=== PATIENT | female | born 1975 | race Caucasian/White ===

== ENCOUNTER 2017-01-05 22:48 | Emergency (ER) | payer OTHER, MEDICARE ==
[~2017-01-05 22:48] MED LIST: ALBUTEROL0.09 MG/A1 INH; ALBUTEROL3 ML INH; ASPIR 8181 MG PO; FLU VACCINE 0.0.5 ML IM; IBUPROFEN600 M1 PO; IRON SUPPLEMEN325 MG PO; MOBIC 15MG15 MG PO; NAPROXEN375 MG; NEXIUM 40MG40 MG PO; OMEPRAZOLE40 MG PO; PERCOCET 325 MG1 TA2 PO; PERCOCET 5-3251 EACH PO; PNEUMOVAX 0.5M0.5 ML IM; PREDNISONE 20MG20 MG PO; PREDNISONE10 MG PO; PREDNISONE20 M1 PO; PROAIR HFA0.09 MG/Ac PO; SYMBICORT 160/41 PUF INH; SYMBICORT 80/4.1 PUF INH; TESSALON PERLE100 M1 PO; TRAMADOL50 MG PO; TRAZODONE100 MG; TYLENOL TAB 32325 MG PO; VITAMIN D50000 IU PO; ZITHROMAX Z-PA250 MG PO; ZITHROMAX500 M2 PO
--- NOTE | 2017-01-05 22:54 | ED GI/GU/ABDOMINAL COMPLAINT ---
History of Present Illness General Chief Complaint: Female Urogenital Problems Stated Complaint: SUPRAPUBIC/GENITAL PAIN Source: patient Exam Limitations: no limitations Vital Signs & Intake/Output Vital Signs & Intake/Output Vital Signs Date Time Temp Pulse Resp B/P Pulse O2 O2 Flow FiO2 Ox Delivery Rate 01/05 2250 97.7 83 18 163/83 98 Allergies Coded Allergies: Penicillins (HIVES 02/29/16) amoxicillin (HIVES 02/29/16) cheese (HIVES 02/29/16) Uncoded Allergies: PET DANDER/HAIR (CONGESTION 07/28/14) Reconcile Medications Albuterol Sulfate (Albuterol Sulfate Hfa) 0.09 MG/Actuation FRANCES 2 PUFF INH PRN SHORTNESS OF BREATH (Reported) 90 MCG PER PUFF Budesonide/Formoterol Fumara (Symbicort 160-4.5 Mcg Inhaler) 160 MCG/4.5 MCG PUF 2 PUF INH BID ASTHMA (Reported) Ibuprofen 800 MG TABLET 1 TAB PO TID PRN pain Oxycodone HCl/Acetaminophen (Percocet 5-325 MG Tablet) 1 EACH TABLET 1 TAB PO Q6H PRN PAIN Triage Nurses Notes Reviewed? yes ? n Is pt currently ? No Duration: day(s): Timing: recent history Location: lower abdomen Radiation: no radiation Modifying Factors: Worsens With: palpation. Associated Symptoms: abdominal pain HPI: 41 yo woman, with morbid obestiy presents with lower abdominal pain for the past 1-2 hours which began after she had a bowel movement. She notes no nausea, vomiting, diarrhea, constiaption, dysuria Past History Medical History Any Pertinent Medical History? see below for history Neurological: migraine EENT: NONE Cardiovascular: NONE Respiratory: asthma Gastrointestinal: NONE Hepatic: NONE Renal: KIDNEY STONES Musculoskeletal: osteoarthritis Psychiatric: insomnia Endocrine: NONE Blood Disorders: NONE Cancer(s): cervical cancer [employer]/Reproductive: NONE History of MRSA: No History of VRE: No History of CDIFF: No Surgical History Surgical History: cholecystectomy, cervix removal Psychosocial History Who do you live with Friend Services at Home None What is your primary language [place]ian Family History Family History, If Any: MOTHER Relation not specified for: FH: lung cancer Hx Contributory? No Review of Systems Review of Systems Constitutional: Reports: no symptoms. EENTM: Reports: no symptoms. Respiratory: Reports: no symptoms. Cardiovascular: Reports: no symptoms. GI: Reports: no symptoms. Genitourinary: Reports: no symptoms. Musculoskeletal: Reports: no symptoms. Skin: Reports: no symptoms. Neurological/Psychological: Reports: no symptoms. Hematologic/Endocrine: Reports: no symptoms. Immunologic/Allergic: Reports: no symptoms. All Other Systems: Reviewed and Negative Physical Exam Physical Exam General Appearance: well developed/nourished, mild distress Head: atraumatic, normal appearance Eyes: Bilateral: normal appearance. Ears, Nose, Throat, Mouth: hearing grossly normal Neck: normal inspection, supple, full range of motion, normal alignment Respiratory: normal breath sounds, chest non-tender, no respiratory distress, quiet respiration, lungs clear Cardiovascular: regular rate/rhythm Gastrointestinal: normal bowel sounds, soft, no organomegaly, diffuse tenderness in lower abdomen, suprapubic region. no rebound. no guarding. Extremities: normal range of motion Neurologic/Psych: no motor/sensory deficits, awake, alert, oriented x 3 Skin: intact, normal color, warm/dry Core Measures ACS in differential dx? No Severe Sepsis Present: No Septic Shock Present: No Progress Differential Diagnosis: UTI/pyelo, appy, muscle strain vs other. Plan of Care: Orders Procedure Date/time Status Add-on Test (ER Only) 01/07 32 Active LIPASE 01/07 32 Complete HEPATIC FUNCTION PANEL 01/07 32 Complete CBC WITHOUT DIFFERENTIAL 01/07 32 Complete BASIC METABOLIC PANEL 01/07 32 Complete AMYLASE 01/07 32 Complete Add-on Test (ER Only) 01/05 2328 Active CULTURE,URINE 01/05 2319 Active URINE 01/05 2318 Complete URINALYSIS 01/05 2318 Complete Laboratory Tests 01/06/17 0156: Anion Gap 6, Estimated GFR > 60, BUN/Creatinine Ratio 21.7, Glucose 105 H, Calcium 10.1, Total Bilirubin 1.0, Direct Bilirubin 0.6 H, AST 50 H, ALT 70 H , Alkaline Phosphatase 161 H, Total Protein 6.8, Albumin 3.8, Amylase < 30 L, Lipase 58 01/06/17 0106: CBC w Diff NO MAN DIFF REQ, RBC 5.52 H, MCV 78.5 L, MCH 25.7 L, RDW 16.7 H, MPV 8.1, Gran % 60.5, Lymphocytes % 29.6, Monocytes % 7.1, Eosinophils % 2.3, Basophils % 0.5, Absolute Granulocytes 4.1, Absolute Lymphocytes 2.0, Absolute Monocytes 0.5, Absolute Eosinophils 0.2, Absolute Basophils 0, PUBS MCHC 32.7 L 01/05/178: Urine Color YEL, Urine Clarity CLEAR, Urine pH 6.0, Ur Specific [place] 1.020, Urine Protein NEG, Urine Ketones NEG, Urine Nitrite NEG, Urine Bilirubin NEG, Urine Urobilinogen 0.2, Ur Leukocyte Esterase NEG, Ur Microscopic EXAM NOT REQUIRED, Urine Hemoglobin NEG, Urine Glucose NEG, Urine Test NEGATIVE Microbiology 01/05 2318 URINE ROUT: Urine Culture - RECD Diagnostic Imaging: Viewed by Me: CT Scan. Discussed w/RAD: CT Scan. Radiology Impression: abd/pelvic ct... no acute change.. full report below. Initial ED EKG: none Comments: PATIENT: MARY JONES PRESENT AGE: 41 PATIENT ACCOUNT NO: [id number] : 77 LOCATION: [facility] ORDERING PHYSICIAN: JASPAL GRAVES MD SERVICE DATE: 01/06/17 EXAM TYPE: CAT - CT ABD & PELVIS W/O IV CONTRAS EXAMINATION: CT ABDOMEN AND PELVIS WITHOUT CONTRAST CLINICAL INFORMATION: Lower abdominal pain. COMPARISON: CT scan abdomen and pelvis 07/29/2014 TECHNIQUE: Multidetector volumetric imaging was performed from the superior aspect of the liver through the pubic symphysis. Sagittal and coronal reformatted images were obtained on the technologist's workstation. DLP: 1479.72 mGy-cm FINDINGS: LUNG BASES: Linear scarring/subsegmental atelectasis at lung bases. LIVER, GALLBLADDER, AND BILIARY TREE: The liver is normal in size, shape, and attenuation. No focal hepatic lesion or biliary ductal dilatation is present. The right lobe liver measures 25.6 cm superior inferior, hepatomegaly. Status post cholecystectomy. No bile duct dilatation. CBD measures 5 mm. PANCREAS: Unremarkable. SPLEEN: Spleen measures 13 cm superior inferior. No focal splenic lesion. ADRENAL GLANDS: Unremarkable. KIDNEYS AND URETERS: 1 mm nonobstructive stone in the midpole the right kidney. No stone in left kidney. There is no ureteral calculus. No hydronephrosis. BLADDER: Unremarkable. GASTROINTESTINAL TRACT: No acute change of the bowel. No bowel obstruction. No bowel wall thickening or edema. Moderate volume of stool in the right colon. The appendix is normal. ABDOMINAL WALL: There is a ventral wall hernia. This is comprised of 2 adjacent hernias of the ventral wall. The ventral wall hernia contains fluid but no bowel loop. There is induration in the subcutaneous tissue around the fluid collection. The size of the fluid collection at the ventral wall hernia has diminished since the exam of 07/29/2014. This measures about 10 cm superior inferior on the prior CAT scan of 07/29/2014 and now measures about 6 cm superior inferior. There is no herniation of bowel loops. LYMPH NODES: No bulky lymphadenopathy. VASCULAR: Scattered vascular wall calcifications of the distal aorta without aneurysm. PELVIC VISCERA: Uterus is anteverted. No adnexal abnormality. No fluid in the cul-de-sac. OSSEOUS STRUCTURES: Unremarkable. IMPRESSION: 1. No acute change CT scan abdomen and pelvis. 2. Persistent ventral wall hernia containing fluid . 3. Mild hepatosplenomegaly. 4. Status post cholecystectomy. DICTATED BY: LISHA SOLIMAN MD DATE/TIME DICTATED:01/06/17152 BLOW DOWN OPERATOR:CARLOS DATE/TIME TRANSCRIBED:01/06/17152 CONFIDENTIAL, DO NOT COPY WITHOUT APPROPRIATE AUTHORIZATION. <Electronically signed in Other Vendor System> SIGNED BY: LISHA SOLIMAN MD 01/06/17 0209 Departure Departure Disposition: HOME OR SELF CARE Condition: Stable Clinical Impression Primary Impression: Abdominal pain Referrals: DAYANNA WILSON APRN (PCP/Family) Departure Forms: Customer Survey General Discharge Information Prescriptions: Current Visit Scripts Ibuprofen 1 TAB PO TID PRN pain #[address] scan benign. labs benign... pt feeling more comfortable in ED... safe for discharge.
[2017-01-06 01:23] LABS: ABSOLUTE BASOPHIL COUNT 0 /CUMM (0.0-0.2); ABSOLUTE EOSINOPHIL COUNT 0.2 /CUMM (0.0-0.7); ABSOLUTE GRANULOCYTE CT 4.1 /CUMM (1.4-6.5); ABSOLUTE MONOCYTE COUNT 0.5 /CUMM (0.10-0.60); BASOPHIL % 0.5 % (0.0-2.0); EOSINOPHIL % 2.3 % (0-5); GRANULOCYTE % 60.5 % (42.2-75.2); HEMATOCRIT 43.4 % (37-47); MEAN CORPUSCULAR HGB 25.7 PG (27.0-31.0); MEAN CORPUSCULAR HGB CONC 32.7 G/DL (33.0-37.0); MEAN CORPUSCULAR VOLUME 78.5 FL (81.0-99.0); MEAN PLATELET VOLUME 8.1 FL (7.4-10.4); PLATELET COUNT 256 /CUMM (130-400); RBC DISTRIBUTION WIDTH 16.7 % (11.5-14.5); RED BLOOD CELL CT 5.52 /CUMM (4.20-5.40); WHITE BLOOD CELL COUNT 6.8 /CUMM (4.8-10.8)
--- NOTE | 2017-01-06 02:09 | CT SCAN REPORT ---
EXAMINATION: CT ABDOMEN AND PELVIS WITHOUT CONTRAST CLINICAL INFORMATION: Lower abdominal pain. COMPARISON: CT scan abdomen and pelvis 07/29/2014 TECHNIQUE: Multidetector volumetric imaging was performed from the superior aspect of the liver through the pubic symphysis. Sagittal and coronal reformatted images were obtained on the technologist's workstation. DLP: 1479.72 mGy-cm FINDINGS: LUNG BASES: Linear scarring/subsegmental atelectasis at lung bases. LIVER, GALLBLADDER, AND BILIARY TREE: The liver is normal in size, shape, and attenuation. No focal hepatic lesion or biliary ductal dilatation is present. The right lobe liver measures 25.6 cm superior inferior, hepatomegaly. Status post cholecystectomy. No bile duct dilatation. CBD measures 5 mm. PANCREAS: Unremarkable. SPLEEN: Spleen measures 13 cm superior inferior. No focal splenic lesion. ADRENAL GLANDS: Unremarkable. KIDNEYS AND URETERS: 1 mm nonobstructive stone in the midpole the right kidney. No stone in left kidney. There is no ureteral calculus. No hydronephrosis. BLADDER: Unremarkable. GASTROINTESTINAL TRACT: No acute change of the bowel. No bowel obstruction. No bowel wall thickening or edema. Moderate volume of stool in the right colon. The appendix is normal. ABDOMINAL WALL: There is a ventral wall hernia. This is comprised of 2 adjacent hernias of the ventral wall. The ventral wall hernia contains fluid but no bowel loop. There is induration in the subcutaneous tissue around the fluid collection. The size of the fluid collection at the ventral wall hernia has diminished since the exam of 07/29/2014. This measures about 10 cm superior inferior on the prior CAT scan of 07/29/2014 and now measures about 6 cm superior inferior. There is no herniation of bowel loops. LYMPH NODES: No bulky lymphadenopathy. VASCULAR: Scattered vascular wall calcifications of the distal aorta without aneurysm. PELVIC VISCERA: Uterus is anteverted. No adnexal abnormality. No fluid in the cul-de-sac. OSSEOUS STRUCTURES: Unremarkable. IMPRESSION: 1. No acute change CT scan abdomen and pelvis. 2. Persistent ventral wall hernia containing fluid . 3. Mild hepatosplenomegaly. 4. Status post cholecystectomy.
[2017-01-06] MEDS ORDERED: IBUPROFEN800 M1 PO (03:11)
[2017-01-06 03:35] VITALS: BP 155/80
== END 2017-01-06 03:38 ==
LOC: ERH 22:48
PROVIDERS: Pediatrics
DX: R10.30 Lower abdominal pain, unspecified (principal)
CPT/HCPCS: 74176; 81003; 81025; 87086; J1885